=== PATIENT | female | born 1995 | race Caucasian/White ===

== ENCOUNTER 2021-08-22 11:05 | Emergency (ER) | payer BC ==
[~2021-08-22] VITALS: Ht 157.5 cm; Wt 45.4 kg
--- NOTE | 2021-08-22 11:05 | NUR ---
PT BIBA TO BED 11.
--- NOTE | 2021-08-22 11:10 | NUR ---
26 y/o female biba from school, pt states she had headache and nausea the whole morning, amr states there was 2 active witnessed seizures, hit the ground, small lac on tongue, + incontinence. glucose enroute 148, gcs 15. skin is pink/warm/dry. a&o x4 with even and steady gait. lungs clear bl, heart rate even and regular. pt denies dysuria, hematuria, urinary frequency or retention, or anyone sick in the household with the same symptoms. pt denies any fever, cp, sob, or cough at this time. pt states pain 8/10 at this time, headache, constant/sharp. vss. patient positioned for comfort. hob elevated. bed down. ermd made aware of pt. pmh: depression, anxiety allergy: penicillin, bizmuth med: prozac, alprazolam
[2021-08-22 11:15] VITALS: BP 121/85
[2021-08-22 12:05] LABS: BASOPHILS % (AUTO) 0.6 % (0.0-2.0); EOSINOPHILS # (AUTO) 0.1 K/uL (0-0.4); EOSINOPHILS % (AUTO) 2.5 % (0.0-4.0); HEMATOCRIT 41.5 % (36-48); HEMOGLOBIN 13.6 g/dL (12.0-16.0); LYMPHOCYTES # (AUTO) 1.2 K/uL (2.5-16.5); LYMPHOCYTES % (AUTO) 28.8 % (20.5-51.1); MEAN CORPUSCULAR HEMOGLOBIN 28 pg (27-31); MEAN CORPUSCULAR HGB CONC 33 g/dL (33-37); MEAN CORPUSCULAR VOLUME 83.8 fL (80-94); MONOCYTES # (AUTO) 0.3 K/uL (0.8-1.0); MONOCYTES % (AUTO) 7.4 % (1.7-9.3); NEUTROPHILS # (AUTO) 2.5 K/uL (1.8-7.7); NEUTROPHILS % (AUTO) 60.7 % (42.2-75.2); PLATELET COUNT (AUTO) 234 K/uL (140-450); RED BLOOD CELL COUNT(AUTO) 4.95 MIL/uL (4.20-5.40); RED CELL DISTRIBUTION WIDTH 14.3 % (11.6-13.7); WHITE BLOOD COUNT (AUTO) 4.1 K/uL (4.8-10.8)
--- NOTE | 2021-08-22 12:11 | NUR ---
DR. COTE AT PT BEDSIDE FOR FURTHER EVALUATION.
[2021-08-22 12:12] LABS: ANION GAP 11.8 (8-16); CARBON DIOXIDE 28.8 mmol/L (21-32); CREATININE 0.6 mg/dL (0.6-1.3); POTASSIUM 3.6 mmol/L (3.5-5.1)
--- NOTE | 2021-08-22 12:42 | NUR ---
pt returned from ct via [facility]
[2021-08-22] MEDS ORDERED: KETOROLAC 30 MG/ML VIAL IVP ONE (13:05)
[2021-08-22] MEDS ORDERED: LORazepam 2 MG/ML VIAL IVP ONE (13:20)
--- NOTE | 2021-08-22 13:35 | NUR ---
pt given sandwich, guevara webb
[2021-08-22 14:16] VITALS: BP 101/64
--- NOTE | 2021-08-22 14:50 | NUR ---
IV removed, catheter intact and site benign. Applied folded 4x4 gauze and tape to stop bleeding.
--- NOTE | 2021-08-22 14:53 | NUR ---
Patient discharged with v/s stable. Written and verbal after care instructions given and explained. Patient verbalized understanding. Ambulatory with by parent. All questions addressed prior to discharge. Advised to follow up with PMD. IV REMOVED. PT LEFT DRESSED IN GOWN DUE TO PT CLOTHING SOILED Addendum: 08/22/21 at 1455 by PHSEP Patient discharged with v/s stable. Written and verbal after care instructions given and explained. Patient verbalized understanding. Ambulatory with by parent. All questions addressed prior to discharge. Advised to follow up with PMD. IV REMOVED. PT LEFT DRESSED IN GOWN DUE TO PT CLOTHING SOILED. PT DENIED MEDICATION FOR HEADACHE PRIOR TO LEAVING. ADVICED TO TAKE OTC ADVIL.
--- NOTE | 2021-08-22 15:30 | NUR ---
The patient's care was reviewed and supervised by Trina Christensen, RN, RN.
== END 2021-08-22 14:53 | disposition home or self-care (01) ==
LOC: MED 11:05
DX: R55 Syncope and collapse (principal); R51.9 Headache, unspecified; R42 Dizziness and giddiness; F32.9 Major depressive disorder, single episode, unspecified; F41.9 Anxiety disorder, unspecified; F17.200 Nicotine dependence, unspecified, uncomplicated; F12.90 Cannabis use, unspecified, uncomplicated
CPT/HCPCS: 36415; 70450; 80048; 85025; 96374; 96375; 99284; J1885; J2060